=== PATIENT | male | born 1990 | race Caucasian/White ===

== ENCOUNTER 2021-10-21 19:05 | Emergency (ER) | payer SELFPAY ==
[~2021-10-21] VITALS: Ht 182.9 cm; Wt 72.6 kg
--- NOTE | 2021-10-21 19:25 | NUR ---
TO ER BED 11. BIBRA C/O R LEG WOUND NEEDING AL REMOVED. REDNESS NOTED AROUND WOUND. CONNECTED TO MONITOR.
[2021-10-21] MEDS ORDERED: OLANZAPINE 5 MG TABLET ONE (19:58)
[2021-10-21] MEDS ORDERED: LET SOLN TOPICAL 8 ML UDC TP ONE ×2 (19:58→20:00)
[2021-10-21] MEDS ORDERED: CEPHALEXIN MONOHYDRATE 500 MG CAPSULE PO ONE ×2 (19:58→20:00)
[2021-10-21] MEDS ORDERED: OLANZAPINE 5 MG TABLET PO ONE (20:00)
--- NOTE | 2021-10-21 20:32 | NUR ---
LAB AT BEDSIDE
[2021-10-21 20:58] LABS: BASOPHILS % (AUTO) 0.5 % (0.0-2.0); EOSINOPHILS % (AUTO) 1.1 % (0.0-6.0); HEMATOCRIT 36 % (39-51); HEMOGLOBIN 12.1 g/dL (13.5-17.5); LYMPHOCYTES # (AUTO) 2.2 K/uL (0.8-4.8); LYMPHOCYTES % (AUTO) 24.8 % (20.0-44.0); MEAN CORPUSCULAR HGB CONC 34 g/dl (31.0-36.0); MEAN CORPUSCULAR VOLUME 87 fL (80-96); MONOCYTES # (AUTO) 0.7 K/uL (0.1-1.30); MONOCYTES % (AUTO) 7.8 % (2.0-12.0); NEUTROPHILS # (AUTO) 5.7 K/uL (1.8-8.9); NEUTROPHILS % (AUTO) 65.8 % (43.0-81.0); PLATELET COUNT (AUTO) 376 K/uL (150-450); RED BLOOD CELL COUNT(AUTO) 4.17 MIL/uL (4.5-6.0); WHITE BLOOD COUNT (AUTO) 8.7 K/uL (4.3-11.0)
[2021-10-21 21:08] LABS: CALCIUM, SERUM 8.7 mg/dL (8.5-10.1); CARBON DIOXIDE 28 mmol/L (21-32); CHLORIDE 102 mmol/L (98-107); CREATININE 0.9 mg/dL (0.6-1.3); GLUCOSE 69 mg/dL (74-106); POTASSIUM 3.7 mmol/L (3.5-5.1); SODIUM SERUM 138 mmol/L (136-145); UREA NITROGEN, BLOOD 17 mg/dL (7-18)
[2021-10-21 21:13] LABS: ACETAMINOPHEN < 2 ug/ml (10-30); ALANINE AMINOTRANSFERASE 42 U/L (12-78); ALBUMIN 3.8 g/dL (3.4-5.0); ALCOHOL, BLOOD 58 mg/dL (0-0); ALKALINE PHOSPHATASE 97 U/L (46-116); ASPARTATE AMINOTRANSFERASE 39 U/L (15-37); BILIRUBIN,DIRECT 0.1 mg/dL (0.0-0.2); BILIRUBIN,TOTAL 0.4 mg/dL (0.2-1.0); TOTAL PROTEIN, SERUM 6.9 g/dL (6.4-8.2)
--- NOTE | 2021-10-21 21:20 | NUR ---
woundcare provided to pt's wound on the r lower leg s/p staple removal. wound care instruction provided and verbalized understanding. He was also provided with wound care supplies.
[2021-10-21] MEDS ORDERED: CEPH500C2 PO (21:28)
--- NOTE | 2021-10-21 21:48 | NUR ---
Patient given written and verbal discharge instructions. Patient verbalizes understanding of instructions. Patient is ambulatory with steady gait. Refuses offer of alf placement. Patient given list of available shelters in surrounding area.
[2021-10-21 21:52] VITALS: BP 130/75
== END 2021-10-21 22:04 | disposition home or self-care (01) ==
LOC: ER 19:08
DX: S81.811D Laceration without foreign body, right lower leg, subsequent encounter (principal); F29 Unspecified psychosis not due to a substance or known physiological condition; F12.90 Cannabis use, unspecified, uncomplicated; Z59.00 Homelessness unspecified; Z72.89 Other problems related to lifestyle; X58.XXXD Exposure to other specified factors, subsequent encounter
CPT/HCPCS: 36415; 80048-TC; 80076-TC; 85025-TC; G0480